=== PATIENT | male | born 1980 | race Caucasian/White ===

== ENCOUNTER → 2017-10-07 | Outpatient (CLI) | payer BC | LOC: BHSO 09:26 | DX: F41.1 Generalized anxiety disorder (principal) ==

== ENCOUNTER → 2018-06-24 | Outpatient (CLI) | payer BC | LOC: BHSO 08:02 | DX: F90.0 Attention-deficit hyperactivity disorder, predominantly inattentive type (principal) | CPT/HCPCS: G0463 ==